=== PATIENT | female | born 1945 | race Caucasian/White ===

== ENCOUNTER → 2016-12-11 | Outpatient (CLI) | payer MEDICARE, BC ==
[~2016-12-11] MED LIST: ALBUTEROL0.09 MG/A2 IH; AMOXICILLIN500 MG PO; BACTRIM DS 8001 TA1 PO; CEFUROXIME AXE250 MG PO; CIPRO500 MG PO; CIPRO750 MG PO; DALI500T PO; DELTASONE5 MG PO; DULERA INH; DULERA100; DULERA100 INH; DUONEB 3 MG/3 ML3 M1 INH; MEDROL DOSEPAK4 MG PO; PREDNISOLONE5 MG PO; PREDNISONE10 MG PO; PREDNISONE2.5 MG PO; PREDNISONE5 MG PO; PULMICORT RESP0.5 MG NEB; SINGULAIR10 MG PO; VIBRAMYCIN100 MG PO; VITAMIN D50000 I3 PO; [UNRECOGNIZED DRUG - OTHER]
[2016-12-11 10:05] LABS: BASO # 0.1 10*3/uL (0.0-0.1); BASO % 0.6 % (0.0-1.0); EOS # 0.7 10*3/uL (0.0-0.4); EOS % 6.5 % (1.0-4.0); HEMATOCRIT 42.7 % (37.0-47.0); HEMOGLOBIN 13.6 g/dl (12.0-16.0); IG # 0.1 10*3/uL (0.0-0.1); LYMPH # 2.2 10*3/uL (1.3-4.4); LYMPH % 20.8 % (27.0-41.0); MEAN CELL VOLUME 89.9 fl (81.0-99.0); MEAN CORPUSCULAR HGB 28.6 pg (27.0-31.0); MEAN CORPUSCULAR HGB CONC 31.9 g/dl (33.0-37.0); MEAN PLATELET VOLUME 9.6 fl (9.6-12.3); MONO # 0.7 10*3/uL (0.1-1.0); MONO % 6.5 % (3.0-9.0); NEUT # 6.9 10*3/uL (2.3-7.9); NEUT % 64.9 % (47.0-73.0); PLATELET COUNT AUTOMATED 205 10*3/uL (130-400); RED BLOOD COUNT 4.75 10*6/uL (4.10-5.10); RED CELL DISTRI WIDTH 13.1 % (0-14.5); WHITE BLOOD COUNT 10.7 10*3/uL (4.8-10.8)
[2016-12-11 10:29] LABS: ALBUMIN 3.3 gm/dl (3.1-4.5); BILIRUBIN, TOTAL 0.6 mg/dl (0.2-1.0); BUN 18 mg/dl (7-24); CARBON DIOXIDE 29 mmol/L (21-32); CHLORIDE 109 mmol/L (98-107); CHOLESTEROL 145 mg/dL (<200); EST GLOM FILT AFRICAN AMERICAN > 60 ml/min; GLUCOSE 90 mg/dL (65-99); POTASSIUM 4.3 mmol/L (3.5-5.1); SGOT/AST 9 IU/L (3-35); SGPT/ALT 18 U/L (12-78); SODIUM 145 mmol/L (136-145); TRIGLYCERIDES 67 mg/dl (<150); VLDL CHOLESTEROL 13 mg/dL (6-40)
[2016-12-11 10:35] LABS: ALKALINE PHOSPHATASE 88 U/L (45-117); FREE T4 1.25 ng/dl (0.76-1.46); HDL CHOLESTEROL 76 mg/dl (40-60); LDL CHOLESTEROL 56 mg/dL (9-159); THYROID STIM HORMONE (HS) 0.554 uIU/ml (0.358-4.75); TOTAL PROTEIN 6.6 gm/dL (6.4-8.2)
[2016-12-11 10:57] LABS: FOLIC ACID 16.72 ng/mL (>5.38); VITAMIN D, 25-HYDROXY 22.7 ng/mL (30-100)
== END | disposition home or self-care (01) ==
LOC: US 12-08 11:00 → LAB 02:12 → US 02:12
PROVIDERS: Internal Medicine
DX: I65.23 Occlusion and stenosis of bilateral carotid arteries (principal); R07.0 Pain in throat; I77.9 Disorder of arteries and arterioles, unspecified; R63.5 Abnormal weight gain

== ENCOUNTER → 2017-08-17 | Outpatient (CLI) | payer MEDICARE, BC ==
[2017-08-17 11:21] LABS: CREATININE 0.71 mg/dL (0.55-1.02)
== END | disposition home or self-care (01) ==
LOC: MRI 02:17 → LAB 02:17 → MRI 11:00
PROVIDERS: Radiology Diagnostic Radiology
DX: R93.8 Abnormal findings on diagnostic imaging of other specified body structures (principal)

== ENCOUNTER → 2018-06-03 | Outpatient (CLI) | payer MEDICARE, BC | END | disposition home or self-care (01) | LOC: MAMMO 05-12 08:39 | DX: Z12.31 Encounter for screening mammogram for malignant neoplasm of breast (principal); Z13.820 Encounter for screening for osteoporosis; N95.9 Unspecified menopausal and perimenopausal disorder ==

== ENCOUNTER → 2019-01-07 | Outpatient (CLI) | payer MEDICARE, BC ==
[~2019-01-07] MED LIST changes: +AUGMENTIN 875875 MG PO; +PROPAFENONE HC150 MG PO; +TAMIFLU 75MG CA75 MG PO; +TENORMIN25 M1 PO; +VITAMIN D31000 UNI1 PO; +XARE15TA PO
== END | disposition home or self-care (01) ==
LOC: US 10:13
DX: I65.23 Occlusion and stenosis of bilateral carotid arteries (principal); E04.2 Nontoxic multinodular goiter

== ENCOUNTER 2019-01-12 17:20 | Inpatient (IN) | payer MEDICARE, BC ==
[~2019-01-12] VITALS: Ht 152.4 cm; Wt 79.5 kg
--- NOTE | ~2019-01-12 | EKG ---
[place], [place] ELECTROCARDIOGRAM REPORT NAME: PITO CARVER UNIT #: [id number] ROOM: 503 DOCTOR: RENALDO DRAFT REPORT BIRTHDATE: [birth year] [facility] Test Date: 2019-01-12 Test Time: 17:22:34 Pat Name: PITO CARVER Department: ER Room: 503 Gender: F Manager Membership: [place] : 1945 Requested By: MICHAELLE MARTINEZ Order Number: [id number] Reading MD: Maria Dolores Hernandez Measurements Intervals [place] Rate: 84 P: 33 AR: 129 QRS: -17 QRSD: 91 T: 53 QT: 364 QTc: 431 Interpretive Statements Sinus rhythm Consider right atrial enlargement Borderline left axis deviation Low voltage, precordial leads Compared to ECG 08/29/2018 01:17:24 Low QRS voltage now present Atrial fibrillation no longer present ST (T wave) deviation no longer present Electronically Signed On 01-13-2019 5:54:28 PDT by Maria Dolores Hernandez CM:EKGRPT:ELECTROCARDIOGRAM REPORT [id number] MICHAELLE GOMEZ DRAFT REPORT MICHAELLE MARTINEZ DO
--- NOTE | ~2019-01-12 | PR ---
[place], [place] PROGRESS NOTE NAME: PITO CARVER [facility] #: [id number] UNIT #: [id number] ROOM: 503 DOCTOR: AZAEL LUCIO MD BIRTHDATE: [birth year] DOS: 01/15/2019 SUBJECTIVE: The patient is on a clear liquid diet now. OBJECTIVE: GENERAL APPEARANCE: The patient is alert and oriented x 3, in no visible distress. VITAL SIGNS: Blood pressure 128/55, temperature 98.5, heart rate of 70 beats per minute, breathing 20 times per minute. HEENT AND NECK: Exam within normal limits. CARDIOVASCULAR SYSTEM: Heart rate is regular in rate and rhythm. S1 and S2 normally audible. LUNGS: Clear to auscultation. ABDOMEN: Soft, nontender. No obvious organomegaly. Bowel sounds are present. EXTREMITIES: Without significant cyanosis or edema. IMPRESSION: 1. The patient is status post reduction of incarcerated umbilical hernia. 2. The patient is on a clear liquid diet now. 3. Acute exacerbation of chronic obstructive pulmonary disease, improving with antibiotics and corticosteroids. 4. Corticosteroid-induced leukocytosis. 5. Chronic atrial fibrillation. The patient normally anticoagulated with Xarelto, kept on Lovenox by Dr. Newton. 6. Obesity. The patient is with BMI of 34.2. The patient is working with Dietary. 7. Benign essential hypertension, treated and controlled. Blood pressures are staying normal. AZAEL LUCIO MD CM:PNTRANS [phone] AZAEL LUCIO MD 01/16/19 0405 interface
--- NOTE | ~2019-01-12 | PR ---
[place], [place] PROGRESS NOTE NAME: PITO CARVER UNIT #: [id number] ROOM: 503 DOCTOR: VIOLET THOMPSON MD BIRTHDATE: [birth year] DOS: 01/14/2019 PULMONARY PROGRESS NOTE SUBJECTIVE: She had incarcerated umbilical hernia repair done yesterday. The patient was comfortably resting this morning of assessment. She has been reported mild cough and there was no sputum expectoration stated this morning. The patient does complain of symptoms of wheezing at times as well. Denies symptoms of fever or chills. OBJECTIVE: VITAL SIGNS: Normal temperature this morning, the patient is resting comfortably in the bed. The heart rate of 73, respiratory rate 18, blood pressure 134/52. HEENT: Head was atraumatic. Eyes nonicterus. NECK: Supple. CARDIOVASCULAR: S1, S2 audible. LUNGS: Mild expiratory wheezing in the lungs bilaterally. ABDOMEN: Soft and nontender. Bowel sounds are present. Status post surgery. EXTREMITIES: No new change. LABORATORY DATA: BMP today, BUN and creatinine was noted as normal. CBC this morning, WBC count 20.1, hemoglobin and hematocrit normal, platelet count normal. IMPRESSION: 1. Status post surgical intervention for the incarcerated hernia, small-bowel obstruction yesterday. 2. Acute exacerbation of chronic obstructive pulmonary disease, treated with steroids. 3. Leukocytosis, most likely steroid induced. PLAN OF MANAGEMENT: Continue Solu-Medrol, bronchodilators, antibiotics. Monitor respiratory status. No acute intervention at this time will be necessary for pulmonary standpoint, continuation of the current therapy, plan of management. [place], [place] PROGRESS NOTE NAME: PITO CARVER UNIT #: [id number] ROOM: 503 DOCTOR: VIOLET THOMPSON MD BIRTHDATE: [birth year] VIOLET MAXWELL MD CM:PNTRANS 55 VIOLET TIJERINA MD 01/26/19 0838 interface
--- NOTE | ~2019-01-12 | PR ---
[place], [place] PROGRESS NOTE [id number] UN[facility] #: [id number] ROOM: 503 DOCTOR: HANS TIJERINA MD,VIOLET BIRTHDATE: [birth year] DOS: 01/16/2019 PULMONARY PROGRESS NOTE SUBJECTIVE: The patient was noted comfortable at this time with reduction of the respiratory symptoms gradually continued. Shortness of breath has been improving. The wheezing decreasing. Cough is noted mild. PHYSICAL EXAMINATION: GENERAL: The patient is comfortably resting this morning, on the bed. OBJECTIVE: VITAL SIGNS: Normal temperature, respiratory rate of 18, heart rate of 67, blood pressure of 145/56. Pulse oxygen saturation recorded as 95% saturation on room air. HEENT: Examination shows head was atraumatic. Eyes nonicterus. NECK: Supple. CARDIOVASCULAR: S1, S2 is audible. LUNGS: The patient was noted without any crackle, rhonchi, or wheezing. ABDOMEN: Soft, nontender. Bowel sounds present. EXTREMITIES: No acute change. IMPRESSION: The patient with resolving acute exacerbation of chronic obstructive pulmonary disease, acute tracheobronchitis, resolving leukocytosis, status post abdominal incarcerated hernia repair. PLAN OF MANAGEMENT: Discharge planning could be started. Change Solu-Medrol to 30 mg daily at the present time and conversion to oral prednisone upon discharge would be considered. VIOLET MAXWELL MD CM:PNTRANS [phone] VIOLET TIJERINA MD 01/17/19 0151 interface
--- NOTE | ~2019-01-12 | O ---
[place], [place] OPERATIVE NOTE NAME: PITO CARVER [facility] #: [id number] UNIT #: [id number] ROOM: 503 DOCTOR: ELIE NEWTON MD BIRTHDATE: [birth year] DOS: 01/13/2019 PREOPERATIVE DIAGNOSIS: Incarcerated periumbilical (ventral hernia). POSTOPERATIVE DIAGNOSIS: Incarcerated periumbilical (ventral hernia). PROCEDURE: Repair of incarcerated periumbilical (ventral hernia). SURGEON: Elie Newton MD METAL CASTER: MARY. ANESTHESIA: GET. INDICATIONS: This is a 73-year-old lady admitted with abdominal pain, nausea and vomiting. A CAT scan showed incarcerated umbilical hernia. It was decided to take the patient to the operating room for the above-mentioned procedure. The procedure and its complications were explained to the patient in detail preoperatively. Complications that were discussed included but were not limited to bleeding, infection, hematoma/seroma/abscess formation, prolonged postoperative pain, damage to underlying vital structures and inadvertent injury to surrounding vital structures and recurrence. She agreed to proceed. DESCRIPTION OF PROCEDURE: After identifying the patient, the patient was brought to the operating suite and laid in the supine position. After induction of general anesthesia, a timeout procedure was called and the parts were then painted and draped in the usual sterile fashion. An incision above the umbilicus in the region of the previous incision was made in a vertical fashion. The skin and the subcutaneous tissue were incised in the line of the incision. The hernial sac was identified and from the surrounding subcutaneous tissue and the sac was then opened and the sac was then excised in its entirety and the content was reviewed, which was found to be partial circumference of the small intestine, which appeared to be viable. The fascial defect was extended superiorly and inferiorly in order to reduce the small intestine back into the peritoneal cavity. Surrounding adhesions were taken down with the help of electrocautery. After the entire fascial defect was from the bowel and the adhesions, it was decided to approximate the fascial defect with [id number] Prolene sutures. Subcutaneous tissue was irrigated and approximated with help of 3-0 Vicryl in a running fashion and the edges of the skin were approximated with the help of 4-0 Vicryl in a subcuticular running fashion after the edges were infiltrated with 1% plain lidocaine. A dressing was placed. The patient tolerated the procedure well and was extubated uneventfully and brought back to the recovery room in stable fashion. There were no complications. Dr. Elie Newton, the attending surgeon, was present throughout the operating case. [place], [place] OPERATIVE NOTE NAME: PITO CARVER UNIT #: [id number] ROOM: [facility] DOCTOR: ELIE NEWTON MD BIRTHDATE: [birth year] Elie Newton MD CM:OPRECORD:OPERATIVE NOTE [phone] ELIE NEWTON MD 01/13/19905 interface
--- NOTE | ~2019-01-12 | EKG ---
[place], [place] ELECTROCARDIOGRAM REPORT NAME: PITO CARVER UNIT #: [id number] ROOM: 503 DOCTOR: RENALDO DRAFT REPORT BIRTHDATE: [birth year] [facility] [place] Test Date: 2019-01-12 Test Time: 23:07:30 Pat Name: PITO CARVER Department: Room: 503 Gender: F Prototype Deicer Assembler: Brandi Sutton : 1945 Requested By: MICHAELLE MARTINEZ Order Number: [id number] Reading MD: Maria Dolores Hernandez Measurements Intervals [place] Rate: 76 P: 28 IA: 141 QRS: -30 QRSD: 91 T: 40 QT: 372 QTc: 419 Interpretive Statements Sinus rhythm Left axis deviation Compared to ECG 08/29/2018 01:17:24 Left-axis deviation now present Atrial fibrillation no longer present ST (T wave) deviation still present Electronically Signed On 01-13-2019 5:57:27 PDT by Maria Dolores Hernandez CM:EKGRPT:ELECTROCARDIOGRAM REPORT [id number] MICHAELLE GOMEZ DRAFT REPORT MICHAELLE MARTINEZ DO
--- NOTE | ~2019-01-12 | PR ---
[place], [place] PROGRESS NOTE NAME: PITO CARVER [facility] #: [id number] UNIT #: [id number] ROOM: 503 DOCTOR: AZAEL LUCIO MD BIRTHDATE: [birth year] DOS: 01/14/2019 SUBJECTIVE: The patient is feeling better, but she had nausea and vomiting, so she was made n.p.o. because of her recent obstructed umbilical hernia surgery. OBJECTIVE: GENERAL APPEARANCE: The patient is alert and oriented x 3, in no visible distress. VITAL SIGNS: Blood pressure 129/47, heart rate 75 beats per minute, breathing 20 times per minute, temperature 98.5 degrees Fahrenheit. HEENT AND NECK: Exam within normal limits. CARDIOVASCULAR SYSTEM: Heart rate is regular in rate and rhythm. S1 and S2 normally audible. LUNGS: Clear to auscultation. ABDOMEN: Soft, nontender. No obvious organomegaly. Bowel sounds are present. EXTREMITIES: Without significant cyanosis or edema. IMPRESSION: 1. The patient is status post surgery for obstructed umbilical hernia, has been made n.p.o. with some clear liquids off and on after she developed nausea and vomiting. 2. Acute exacerbation of severe underlying chronic obstructive pulmonary disease. Continues to improve with oxygen and nebulizer treatments, antibiotic. 3. Chronic atrial fibrillation. The patient anticoagulated with Xarelto, which was held back and Dr. Newton have her on Lovenox for now. 4. The patient has obesity, working with Dietary. 5. Benign essential hypertension. Blood pressure being monitored, treated and controlled. AZAEL LUCIO MD CM:PNTRANS [phone] AZAEL LUCIO MD 01/14/19 1756 interface
--- NOTE | ~2019-01-12 | CON ---
[place], [place] REPORT OF CONSULTATION [id number] UN[facility] #: [id number] ROOM: 503 DOCTOR: HANS TIJERINA MDVIOLET BIRTHDATE: [birth year] DOS: 01/13/2019 REASON FOR CONSULTATION: Assess the patient for COPD. HISTORY OF PRESENT ILLNESS: A 73-year-old white female patient who was admitted to the hospital under Dr. Mari Snyder. The patient presented to the hospital and hospitalized, as the patient was complaining of symptoms of increasing shortness of breath with wheezing and coughing. The patient's symptoms, not resolving with outpatient treatment, treated with corticosteroids with antibiotic by Dr. Mari Snyder. The patient presented to the Emergency Room for further assessment. She has been noted with symptoms of some abdominal pain as well. The patient has been assessed in the Emergency Room, noted with incarcerated small umbilical hernia. The hernia could not be reduced. The patient has been hospitalized further workup done and just completed surgical intervention by Dr. Newton for further management incarcerated umbilical hernia. Post-surgery, was assessed, she was complaining of a cough, which are noted, moderate at that time without any sputum expectoration. Denies symptoms, shortness breath or wheezing. The patient was also reported. There were no symptoms of chest pain as stated by the patient. REVIEW OF SYSTEMS: CONSTITUTIONAL: Fatigue and tiredness noted, symptoms of fever or chills. EYES: Denies any burning, redness, or tenderness. EARS, NOSE, THROAT SYMPTOMS: Denies sore throat, hoarseness, otalgia, postnasal drainage or epistaxis. GASTROINTESTINAL: Denies dysphagia, nausea, vomiting, diarrhea. Abdominal pain was noted previously and currently a surgical intervention. No symptoms of hematemesis, melena, or hematochezia. GENITOURINARY: No dysuria, suprapubic pain, hematuria. MUSCULOSKELETAL SYMPTOMS: No acute joint pain, redness, or tenderness. SKIN: Noted without lesions or rashes. CENTRAL NERVOUS SYSTEM: The patient denies symptoms of dizziness, headache, diplopia, syncopal episodes. PAST MEDICAL HISTORY: 1. Noted with history of uncomplicated moderate persistent bronchial asthma. 2. Permanent atrial fibrillation. 3. Essential hypertension. 4. Moderate obesity. 5. Granulomatous inflammatory mass. PAST SURGICAL HISTORY: 1. Surgical resection in 09/2018 in [facility]. 2. Laparoscopic cholecystectomy. 3. Tubal ligation. 4. Right upper lobectomy and lymph node resection on 09/28/2018. 5. Umbilical hernia repair on 01/13/2019. SOCIAL HISTORY: The patient lives at home. The patient is , has 2 children. Tobacco use reported a pack of cigarettes until 1996. [place], [place] REPORT OF CONSULTATION NAME: [facility] CAR[facility]: [id number] UNIT #: [id number] ROOM: [facility] DOCTOR: MONTSE THOMPSON MDM BIRTHDATE: [birth year] FAMILY HISTORY: The patient's father at age 74 of complications of myocardial infarction. Mother with age of 87 years of complication related to the congestive heart failure. CURRENT MEDICATIONS: Administered actively were atenolol, Daliresp, Singulair, Solu-Medrol 20 mg t.i.d., IV Rocephin and some other p.r.n. meds including current use of bronchodilators and DuoNeb. DRUG ALLERGIES: Noted as no known drug allergies. PHYSICAL EXAMINATION: GENERAL: A 73-year-old female patient currently just completed surgery, the patient noted to be awake, able to answer questions. Height of 5 feet, weight of 175, BUN 34. VITAL SIGNS: Normal temperature, respiratory rate 18-16, heart rate of 74, blood pressure 130/50-144/53. Pulse ox saturation on 2 liters nasal cannula 94% saturation. HEAD, EYES, EARS, NOSE, AND THROAT: Shows head was atraumatic. Eyes nonicterus. NECK: Supple. Moderate obesity. CARDIOVASCULAR SYSTEM: S1, S2 audible. LUNGS: The patient noted with general reduction of breath sounds bilaterally with mild to moderate expiratory wheezing bilaterally. ABDOMEN: Soft, nontender. Status post surgery. EXTREMITIES: The patient without edema. MUSCULOSKELETAL: Without any deformity, limited central: No focal deficit. LABORATORY DATA: CBC on admission, WBC count 15.2, hemoglobin and hematocrit normal, platelet count normal. CMP that was done on 01/12/2019, normal BUN and creatinine. Other electrolytes and LFTs are normal. Lactic acid 0.8 yesterday noted as well. PT/PTT yesterday noted as normal. BMP that was done this morning, normal BUN and creatinine. Glucose was noted normal as well. CBC this morning, WBC count 16.2, hemoglobin and hematocrit normal, platelet count normal. Review of the radiology data: Chest x-ray that was done on day was noted as no acute abnormalities. CT scan of the abdomen and pelvis, which was done on 01/12/2019 for was noted with ventral hernia containing cough small bout of the umbilical hernia with very narrow, resulting in acute bowel obstruction. Moderate dilatation of the bowel, was also reported. Patchy infiltration noted low thoracic area in the right lung. IMPRESSION: 1. The patient will be currently admitted to the hospital with progressive cough with acute exacerbation of chronic obstructive pulmonary disease with possibility of acute pneumonia. The patient's right lower lobe cannot be excluded with ongoing acute exacerbation of chronic obstructive pulmonary disease. 2. Ventral hernia with bowel obstruction, incarcerated surgical intervention today. 3. Moderate obesity. [place], [place] REPORT OF CONSULTATION NAME: PITO CARVER UNIT #: [id number] ROOM: [facility] DOCTOR: VIOLET THOMPSON MD BIRTHDATE: [birth year] 4. Past lung surgery, right upper lobectomy, nonmalignant nodule. 5. Acute exacerbation of chronic obstructive pulmonary disease, bronchial asthma. PLAN OF TREATMENT: Continue bronchodilators, oxygen supplementation, current dose of corticosteroids. Pain management post-surgery and other treatment. Other additional treatment changes will be ordered based on the progression of the illness. Usual care, other supportive plan of therapy and care plan and management, DVT prophylaxis. VIOLET MAXWELL MD CM:CONSTR:REPORT OF CONSULTATION 1303 01/26/19 0837 interface
--- NOTE | ~2019-01-12 | WRIGHTHP ---
[place], [place] PATIENT HISTORY AND PHYSICAL EXAM NAME: PITO CARVER [facility] #: [id number] UNIT #: [id number] ROOM: 503 DOCTOR: AZAEL LUCIO MD BIRTHDATE: [birth year] DOS: 01/12/2019 HISTORY OF PRESENT ILLNESS: The patient is a 73-year-old female with a past medical history of: 1. Advanced COPD. 2. Chronic atrial fibrillation. 3. History of cholecystectomy, tubal ligation and . 4. Vitamin D deficiency. 5. Obesity. 6. Benign essential hypertension. 7. Small umbilical hernia. The patient presented to the Emergency Department with increasing shortness of breath, wheezing and cough, which did not resolve with outpatient treatment of antibiotics and corticosteroids given by her PCP, Dr. Snyder. The patient came to the Emergency Department and she was found to have an incarcerated small umbilical hernia, which could not be reduced. CT scan of the abdomen was ordered, which showed ventral hernia containing bowel at the level of the umbilicus with a very narrow neck, resulting in bowel obstruction. No chest pains, no GI or urinary symptoms otherwise except for severe recurrent nausea. REVIEW OF SYSTEMS: GASTROINTESTINAL: The patient with recurrent nausea, feels like vomiting and pain at the umbilical hernia site when even touched. RESPIRATORY: Increasing shortness of breath and wheezing recently. CARDIOVASCULAR: No chest pains or palpitations. FAMILY HISTORY: Noncontributory. ALLERGIES: No known drug allergies. MEDICATIONS: The patient on Xarelto, Daliresp, Singulair, atenolol, DuoNeb at home. PHYSICAL EXAMINATION: GENERAL: Alert and oriented x 3, in no visible distress except for nausea. The patient with obesity. VITAL SIGNS: Blood pressure 156/64, heart rate 79 beats per minute, breathing 16 times per minute, temperature 98.6 degrees Fahrenheit. HEENT AND NECK: Extraocular movements are intact. Sclerae are anicteric. Oral mucosa is moist and clean. No obvious facial weakness. Neck is supple without any lymphadenopathy. No thyromegaly. No JVD. No carotid arterial bruits. LUNGS: Decreased breath sounds all over with expiratory wheezing. CARDIOVASCULAR SYSTEM: Heart rate is regular in rate and rhythm. S1 and S2 normally audible. No significant murmur or any other abnormal cardiac sounds. ABDOMEN: Shows obese, small non-reducing and tender umbilical hernia. EXTREMITIES: Without significant cyanosis or edema. Warm to touch. CENTRAL NERVOUS SYSTEM: Alert and oriented x 3. Cranial nerves II-XII are intact. Speech is normal. The patient is able to move all extremities. Normal muscle strength. Deep tendon reflexes are equal on both sides. Plantars were [place], [place] PATIENT HISTORY AND PHYSICAL EXAM NAME: PITO CARVER UNIT #: [id number] ROOM: [facility] DOCTOR: AZAEL LUCIO MD BIRTHDATE: [birth year] downgoing. IMPRESSION AND PLAN: 1. Non-reducing obstructed incarcerated umbilical hernia with bowel loops present in it and causing bowel obstruction. Stat surgical consult obtained because the patient may require an urgent surgery if the blood supply to the bowel becomes compromised. Dr. Newton, the surgeon consulted on stat urgent basis. 2. Acute exacerbation of severe underlying chronic obstructive pulmonary disease with wheezing, shortness of breath, to be treated with corticosteroids, oxygen, nebulizer treatments, antibiotic and oxygen. 3. Chronic atrial fibrillation, now anticoagulated with Xarelto, which has been continued for now. 4. Morbid obesity. The patient to work with Dietary. 5. Benign essential hypertension. Blood pressure is to be monitored and treated. AZAEL LUCIO MD CM:HISPHYS:PATIENT HISTORY AND PHYSICAL EXAMINATION 27 [phone] AZAEL LUCIO MD 01/12/19 221 interface
--- NOTE | ~2019-01-12 | EKG ---
[place], [place] ELECTROCARDIOGRAM REPORT NAME: PITO CARVER UNIT #: [id number] ROOM: 503 DOCTOR: RENALDO DRAFT REPORT BIRTHDATE: [birth year] [facility] Test Date: 2019-01-12 Test Time: 20:30:27 Pat Name: PITO CARVER Department: Room: 503 Gender: F Trapeze Artist: Brandi Sutton : 1945 Requested By: IMCHAELLE MARTINEZ Order Number: [id number] Reading MD: Maria Dolores Hernandez Measurements Intervals [place] Rate: 83 P: OR: QRS: -28 QRSD: 90 T: 36 QT: 357 QTc: 420 Interpretive Statements Sinus rhyhtm Ventricular premature complex Borderline left axis deviation Compared to ECG 08/29/2018 01:17:24 Ventricular premature complex(es) now present ST (T wave) deviation no longer present Electronically Signed On 01-13-2019 5:55:52 PDT by Maria Dolores Hernandez CM:EKGRPT:ELECTROCARDIOGRAM REPORT [id number] MICHAELLE GOMEZ DRAFT REPORT MICHAELLE MARTINEZ DO
--- NOTE | ~2019-01-12 | DS ---
[place], [place] DISCHARGE SUMMARY NAME: PITO CARVER UNIT #: [id number] ROOM: 503 DOCTOR: AZAEL LUCIO MD BIRTHDATE: [birth year] DOS: 01/16/2019 DISCHARGE DIAGNOSES: 1. Repair of incarcerated umbilical hernia by Dr. Newton on 01/13/2019. 2. Acute exacerbation of chronic obstructive pulmonary disease. 3. Chronic atrial fibrillation. The patient is anticoagulated with Xarelto. 4. Obesity, body mass index of 34.2. 5. Benign essential hypertension. 6. History of cholecystectomy, tubal ligation, section. 7. Vitamin D deficiency. 8. Benign essential hypertension. HOSPITAL COURSE: The patient presented with increased shortness of breath and was diagnosed as having acute exacerbation of COPD and was treated with corticosteroids, antibiotic, oxygen, bronchodilators and her breathing has improved. The patient also presented with incarcerated small umbilical hernia for which she was taken for repair surgery and she is tolerating regular diet and is asymptomatic. Chronic atrial fibrillation. The patient to be anticoagulated with Xarelto again at discharge. Morbid obesity, BMI of 34.2. The patient worked with Dietary. Benign essential hypertension, treated and controlled. CBC: White blood cell count of 12,700, hemoglobin 12.5, normal platelets Chronic atrial fibrillation. The patient is to be anticoagulated again with Xarelto as she is going home. She was kept on Lovenox by Dr. Newton while she was at the hospital for DVT prophylaxis, but Xarelto was stopped because of surgery. Obesity with BMI of 34.2. The patient worked with Dietary. Benign essential hypertension, treated and controlled. DISCHARGE MANAGEMENT: Protonix 40 mg a day, Daliresp 500 mcg daily, atenolol 25 mg daily, Singulair 10 mg a day, Tylenol 1000 mg every 8 hours as needed for pain. [place], [place] DISCHARGE SUMMARY NAME: PITO CARVER UNIT #: [id number] ROOM: 503 DOCTOR: AZAEL LUCIO MD BIRTHDATE: [birth year] AZAEL LUCIO MD CM:DISCHARG [id number] AZAEL LUCIO MD 01/17/19 0016 interface
--- NOTE | ~2019-01-12 | PR ---
[place], [place] PROGRESS NOTE NAME: PITO CARVER [facility] #: [id number] UNIT #: [id number] ROOM: 503 DOCTOR: HANS TIJERINA MD,VIOLET BIRTHDATE: [birth year] DOS: 01/15/2019 PULMONARY PROGRESS NOTE SUBJECTIVE: The patient noted comfortable at this time, resting on the bed, still noted with mild cough and wheezing intermittently. There were no symptoms of fever or chills or chest pain. OBJECTIVE: VITAL SIGNS: Normal temperature, respiratory rate 20, heart rate 74, blood pressure 135/47. Pulse ox saturation on room air, 92% saturation. HEENT: Head was atraumatic. Eyes nonicterus. NECK: Supple. CARDIOVASCULAR: S1, S2 audible. LUNGS: Noted without any crackles. Expiratory wheezing. ABDOMEN: Soft, nontender. Bowel sounds present. EXTREMITIES: No new change. LABORATORY DATA: BNP noted as normal BUN and creatinine. CBC this morning, WBC count 16.7, normal hemoglobin and hematocrit. IMPRESSION: Acute exacerbation of chronic obstructive pulmonary disease, acute tracheobronchitis with gradual improvement in symptoms, still noted and expiratory wheezing. PLAN OF MANAGEMENT: No changes in the plan of care. Continue steroids, bronchodilators, and other treatment as in progress. Usual care. Supportive care. VIOLET MAXWELL MD CM:PNTRANS [id number] VIOLET TIJERINA MD 01/16/19 0333 interface
[2019-01-12 17:21] VITALS: BP 149/54
[2019-01-12 17:58] LABS: BASO % 0.2 % (0.0-1.0); EOS # 0.1 10*3/uL (0.0-0.4); EOS % 0.9 % (1.0-4.0); HEMATOCRIT 41.8 % (37.0-47.0); HEMOGLOBIN 13.4 g/dl (12.0-16.0); LYMPH % 6.8 % (27.0-41.0); MEAN CELL VOLUME 91.5 fl (81.0-99.0); MEAN CORPUSCULAR HGB 29.3 pg (27.0-31.0); MEAN CORPUSCULAR HGB CONC 32.1 g/dl (33.0-37.0); MEAN PLATELET VOLUME 10.4 fl (9.6-12.3); MONO % 6.3 % (3.0-9.0); NEUT # 12.9 10*3/uL (2.3-7.9); NEUT % 84.9 % (47.0-73.0); PLATELET COUNT AUTOMATED 251 10*3/uL (130-400); RED BLOOD COUNT 4.57 10*6/uL (4.10-5.10); RED CELL DISTRI WIDTH 12.8 % (0-14.5); WHITE BLOOD COUNT 15.2 10*3/uL (4.8-10.8)
[2019-01-12 18:15] LABS: ALBUMIN 3.3 gm/dl (3.1-4.5); ALKALINE PHOSPHATASE 85 U/L (45-117); BUN 15 mg/dl (7-24); CHLORIDE 105 mmol/L (98-107); CREATININE 0.82 mg/dL (0.55-1.02); POTASSIUM 3.7 mmol/L (3.5-5.1); SGOT/AST 12 IU/L (3-35); SGPT/ALT 18 U/L (12-78); SODIUM 142 mmol/L (136-145); TOTAL PROTEIN 6.7 gm/dL (6.4-8.2)
[2019-01-12 18:18] LABS: ACT PARTIAL THROMBO TIME 24.7 SECONDS (20.0-32.1); INTERNATIONAL NORM RATIO 0.9 (2.0-3.5)
[2019-01-12 18:19] LABS: TROPONIN I < 0.015 ng/ml (<0.045)
[2019-01-12 19:17] VITALS: BP 156/64
--- NOTE | 2019-01-12 19:40 | NUR ---
PT TO CT AT THIS TIME
--- NOTE | 2019-01-12 20:04 | NUR ---
PATIENT BACK FROM CT
--- NOTE | 2019-01-12 21:00 | NUR ---
VERIFIED HOME MEDICATION LIST FROM PATIENT'S OWN LIST.
--- NOTE | 2019-01-12 21:30 | NUR ---
A 73, admitted to 5E, under the services of Dr. NAVEED GAY,AZAEL Merchant with a diagnosis of PERIUMBILICAL HERNIA, COPD. Chief complaint is SOB, NAUSEA, VOMITTING. Patient arrived via BED from ER. Monitor applied. Initial assessment completed. Vital signs taken and recorded. DR. NAVEED GAY,AZAEL Merchant notified of admission to the unit. Orders received. See assessment for past medical history, medications and allergies. Patient and/or family oriented to unit. [facility] visitation policy reviewed. Clothing/patient valuable form completed. CAROLA COLE
--- NOTE | 2019-01-12 21:35 | NUR ---
EPISODE OF EMISIS. 150ML GREEN BILE OUT.
--- NOTE | 2019-01-12 22:00 | NUR ---
PATIENT HAD EPISODE OF EMISIS 200ML GREEN BILE OUT.
--- NOTE | 2019-01-12 22:27 | NUR ---
NG TUBE PLACED IN PATIENT AFTER 2 ATTEMPTS. DENIES DISCOMFORT OR PAIN AT THIS TIME. AIR BOLUS COMPLETED AND AUSCULTATED. VOICES NO CONCERNS AT THIS TIME. RESPIRATIONS EASY NONLABORED ON 2L VIA NC.
[2019-01-13] VITALS (12 sets, daily range): BP systolic 123–154; BP diastolic 52–78
--- NOTE | 2019-01-13 | NUR ---
PATIENT REPORTS RELIEF FROM NAUSEA AND ABDOMINAL PAIN AFTER NG TUBE PLACEMENT. NO SIGNS OR SYMPTOMS OF DISTRESS.
[2019-01-13 06:31] LABS: HEMATOCRIT 41.2 % (37.0-47.0); MEAN CELL VOLUME 92.2 fl (81.0-99.0); MEAN CORPUSCULAR HGB 29.1 pg (27.0-31.0); MEAN CORPUSCULAR HGB CONC 31.6 g/dl (33.0-37.0); MEAN PLATELET VOLUME 10.2 fl (9.6-12.3); PLATELET COUNT AUTOMATED 246 10*3/uL (130-400); RED BLOOD COUNT 4.47 10*6/uL (4.10-5.10); RED CELL DISTRI WIDTH 12.7 % (0-14.5); WHITE BLOOD COUNT 16.2 10*3/uL (4.8-10.8)
--- NOTE | 2019-01-13 06:50 | NUR ---
PATIENT TAKEN OFF THE FLOOR FOR SURGERY BY OR NURSES. FAMILY WITH PATIENT. NO SIGNS OR SYMPTOMS OF DISTRESS.
--- NOTE | 2019-01-13 06:54 | NUR ---
PATIENT OFF FLOOR TO SURGERY AT THIS TIME
[2019-01-13 06:57] LABS: BUN 16 mg/dl (7-24); CHLORIDE 106 mmol/L (98-107); CREATININE 0.77 mg/dL (0.55-1.02); POTASSIUM 4.3 mmol/L (3.5-5.1); SODIUM 140 mmol/L (136-145)
--- NOTE | 2019-01-13 07:25 | NUR ---
DR MAXWELL CALLED FOR CONSULT. SAID HE WILL SEE THE PATIENT.
[2019-01-13 07:28] LABS: PLATELET SUFFICIENCY NORMAL (NORMAL); TOTAL CELLS COUNTED 100 #CELLS
--- NOTE | 2019-01-13 10:30 | NUR ---
Pre Kindergarten Teacher in to talk to patient. Patient states lives at home with her 18 yo grandson. There are 0 steps in the home. Physician: Dr. Mari Snyder Pharm[facility]: [facility] Home health services: none Patient's level of ADLs: INDEPENDENT Patient has working utilities: yes DME: O2 @ 2L [place], portable O2 tanks, nebulizer, O2 supplier [employer] Follow-up physician's appointment after d/c: she prefers to make her own follow appt after discharge Does patient want to access PORTAL?: no Discharge plan discussed with patient and family who is at the bedside. She lives at home with her 18 yo grandson. She is independent in her ADLs and ambulation. Discussed home health care services and she denies any home needs at this time. When medically stable she will be discharged to home. ROBSON WILKES
[2019-01-14] VITALS: BP 130/46; BP 134/52
[2019-01-14 07:29] LABS: BASO # 0.1 10*3/uL (0.0-0.1); BASO % 0.2 % (0.0-1.0); EOS # 0.1 10*3/uL (0.0-0.4); EOS % 0.3 % (1.0-4.0); HEMOGLOBIN 12.4 g/dl (12.0-16.0); LYMPH # 0.8 10*3/uL (1.3-4.4); LYMPH % 3.7 % (27.0-41.0); MEAN CELL VOLUME 92.2 fl (81.0-99.0); MEAN CORPUSCULAR HGB 29.3 pg (27.0-31.0); MEAN CORPUSCULAR HGB CONC 31.8 g/dl (33.0-37.0); MEAN PLATELET VOLUME 10.4 fl (9.6-12.3); MONO # 1.3 10*3/uL (0.1-1.0); MONO % 6.6 % (3.0-9.0); NEUT # 17.7 10*3/uL (2.3-7.9); NEUT % 88.4 % (47.0-73.0); PLATELET COUNT AUTOMATED 243 10*3/uL (130-400); RED BLOOD COUNT 4.23 10*6/uL (4.10-5.10); RED CELL DISTRI WIDTH 12.8 % (0-14.5); WHITE BLOOD COUNT 20.1 10*3/uL (4.8-10.8)
[2019-01-14 08:00] VITALS: BP 110/70
[2019-01-14 08:09] LABS: BUN 20 mg/dl (7-24); CHLORIDE 106 mmol/L (98-107); CREATININE 0.84 mg/dL (0.55-1.02); POTASSIUM 4.1 mmol/L (3.5-5.1); SODIUM 140 mmol/L (136-145)
--- NOTE | 2019-01-14 09:00 | NUR ---
Online Merchandiser in to see patient. No new needs or request at this time. She denies any home needs. When medically stable she will be discharged to home.
--- NOTE | 2019-01-14 09:19 | NUR ---
PATIENT HAS NEVER TAKEN TENORMIN OR XERALTO.
--- NOTE | 2019-01-14 10:29 | NUR ---
MEDICATED WITH PRN TUMS AND ZOFRAN PER ORDERS AND FOR C/O NAUSEA AND BURNING.
[2019-01-14 12:00] VITALS: BP 133/56
[2019-01-14 16:00] VITALS: BP 129/47
[2019-01-14 20:00] VITALS: BP 129/51
--- NOTE | 2019-01-14 20:00 | NUR ---
AAOX3 SITTING UP IN BED VISITING. IV FLUIDS INFUSING INTO LEFT ARM WITHOUT DIFFICULTY; SITE ASYMPTOMATIC. LUNGS WITH RHONCHI; PT. HAS A MOIST NONPRODUCTIVE COUGH NOTED. PT. VOICES NO C/O AT THIS TIME; NO DISTRESS NOTED. CALLL LIGHT WITHIN REACH.
--- NOTE | 2019-01-14 21:00 | NUR ---
AMBULATING IN GOMES WITHOUT DIFFICULTY.
[2019-01-15] VITALS: BP 127/48
--- NOTE | 2019-01-15 | NUR ---
RESTING IN BED WITH EYES CLOSED. CALL LIGHT WITHIN REACH.
--- NOTE | 2019-01-15 06:00 | NUR ---
UP TO BATHROOM TO WASH UP. LINENS CHANGED BY PA. PT. VOICES NO C/O AT THIS TIME.
[2019-01-15 06:39] LABS: HEMATOCRIT 38.3 % (37.0-47.0); MEAN CELL VOLUME 93.2 fl (81.0-99.0); MEAN CORPUSCULAR HGB 29.2 pg (27.0-31.0); MEAN CORPUSCULAR HGB CONC 31.3 g/dl (33.0-37.0); MEAN PLATELET VOLUME 10.2 fl (9.6-12.3); PLATELET COUNT AUTOMATED 219 10*3/uL (130-400); RED BLOOD COUNT 4.11 10*6/uL (4.10-5.10); RED CELL DISTRI WIDTH 12.7 % (0-14.5); WHITE BLOOD COUNT 16.7 10*3/uL (4.8-10.8)
[2019-01-15 06:50] LABS: BUN 21 mg/dl (7-24); CHLORIDE 107 mmol/L (98-107); CREATININE 0.82 mg/dL (0.55-1.02); POTASSIUM 4.1 mmol/L (3.5-5.1); SODIUM 141 mmol/L (136-145)
[2019-01-15 07:32] LABS: PLATELET SUFFICIENCY NORMAL (NORMAL); TOTAL CELLS COUNTED 100 #CELLS
--- NOTE | 2019-01-15 07:50 | NUR ---
ASSESSMENT COMPLETED. SEE ASSESSMENT INTERVENTION. PATIENT VOICES NO CONCERNS AT THIS TIME. VOICES NO CONCERNS AT THIS TIME.
[2019-01-15 08:00] VITALS: BP 132/48
--- NOTE | 2019-01-15 09:15 | NUR ---
PATIENT TAKES MEDICATIONS WITH SIPS OF WATER. NO SIGNS OR SYMPTOMS OF DISTRESS. VOICES NO CONCERNS. IVF INFUSING AT 60ML/HR
--- NOTE | 2019-01-15 11:15 | NUR ---
PATIENT UP AMBULATING IN GOMES WITH NO DIFFICULTY. VOICES NO CONCERNS AT THIS TIME.
[2019-01-15 12:00] VITALS: BP 135/47
[2019-01-15 16:00] VITALS: BP 128/55
[2019-01-15 20:00] VITALS: BP 139/51
--- NOTE | 2019-01-15 20:00 | NUR ---
RESTING IN BED; VOICES NO C/O AT THIS TIME. IV FLUIDS INFUSING ORDERED. PT. VOICES NO C/O. CALL LIGHT WITHIN REACH.
--- NOTE | 2019-01-15 22:00 | NUR ---
REFUSING TYELNOL AT THIS TIME.
[2019-01-16] VITALS: BP 145/56
--- NOTE | 2019-01-16 06:00 | NUR ---
REFUSING TYLENOL AT THIS TIME. IV FLUIDS CONTINUE TO INFUSE ORDERED. NO DISTRESS NOTED. CALL LIGHT WITHIN REACH.
[2019-01-16 06:20] LABS: CREATININE 0.73 mg/dL (0.55-1.02)
[2019-01-16 06:31] LABS: BASO % 0.1 % (0.0-1.0); EOS % 0.2 % (1.0-4.0); HEMATOCRIT 38.9 % (37.0-47.0); HEMOGLOBIN 12.5 g/dl (12.0-16.0); LYMPH # 0.8 10*3/uL (1.3-4.4); LYMPH % 5.9 % (27.0-41.0); MEAN CORPUSCULAR HGB 29.6 pg (27.0-31.0); MEAN CORPUSCULAR HGB CONC 32.1 g/dl (33.0-37.0); MEAN PLATELET VOLUME 10.6 fl (9.6-12.3); MONO # 0.8 10*3/uL (0.1-1.0); MONO % 6.3 % (3.0-9.0); NEUT % 86.6 % (47.0-73.0); PLATELET COUNT AUTOMATED 203 10*3/uL (130-400); RED BLOOD COUNT 4.23 10*6/uL (4.10-5.10); RED CELL DISTRI WIDTH 12.7 % (0-14.5); WHITE BLOOD COUNT 12.7 10*3/uL (4.8-10.8)
[2019-01-16 12:00] VITALS: BP 133/53
[2019-01-16 16:00] VITALS: BP 137/50
--- NOTE | 2019-01-16 19:27 | NUR ---
PT RESTING IN BED./ NO DISTRESS NOTED. CALL LIGHT WTIHIN REACH
--- NOTE | 2019-01-16 21:18 | NUR ---
Discharge instructions reviewed with patient/family. Patient receptive and verbalizes understanding. Follow-up care arranged. Written instructions given to patient/family. NIDHI JUSTICE
== END 2019-01-16 21:18 | disposition home or self-care (01) | DRG 354 ==
LOC: ED 17:20 → 5E 18:43 → EDHOLD 18:43 → 5E 19:01
PROVIDERS: Emergency Medicine; Surgery; ADMIT Internal Medicine
PROC: 0WQF0ZZ Repair Abdominal Wall, Open Approach (ICD-10-PCS; principal; 2019-01-13)
DX: K42.0 Umbilical hernia with obstruction, without gangrene (principal); J44.1 Chronic obstructive pulmonary disease with (acute) exacerbation; J44.0 Chronic obstructive pulmonary disease with (acute) lower respiratory infection; K43.6 Other and unspecified ventral hernia with obstruction, without gangrene; E55.9 Vitamin D deficiency, unspecified; I48.2 Chronic atrial fibrillation; E66.01 Morbid (severe) obesity due to excess calories; J20.9 Acute bronchitis, unspecified; J45.40 Moderate persistent asthma, uncomplicated; I10 Essential (primary) hypertension; T38.0X5A Adverse effect of glucocorticoids and synthetic analogues, initial encounter; D72.829 Elevated white blood cell count, unspecified; Y92.238 Other place in hospital as the place of occurrence of the external cause; Z87.891 Personal history of nicotine dependence; Z82.49 Family history of ischemic heart disease and other diseases of the circulatory system; Z90.49 Acquired absence of other specified parts of digestive tract; Z98.891 History of uterine scar from previous surgery; Z98.51 Tubal ligation status; Z87.01 Personal history of pneumonia (recurrent); Z79.899 Other long term (current) drug therapy; Z68.34 Body mass index [BMI] 34.0-34.9, adult